=== PATIENT | male | born 1965 ===

== ENCOUNTER 2016-12-08 07:07 | Observation (INO) | payer OTHER ==
[2016-12-08] MEDS ORDERED: Sodium Chloride 0.9% 1,000 ML IV STA (07:31)
--- NOTE | 2016-12-08 07:40 | ED PDOC ---
HPI: General Adult Time Seen by Provider: 12/08/16 07:31 Chief Complaint (Nursing): Abdominal Pain Chief Complaint (Provider): abdominal pain History Per: Patient, Greaser Operator (#[id number] Christiano) History/Exam Limitations: no limitations Additional Complaint(s): 51yo male complaining of right lower quadrant pain since 0. Also reports nausea and vomit but no diarrhea. States he's had similar pain 3 months ago consistent with an appendix problem. States he was admitted at [facility] for 2 days at the time and was told his appendix was swollen. Appendectomy was not completed. Past Medical History Reviewed: Historical Data, Nursing Documentation, Vital Signs Vital Signs: Last Vital Signs Temp 97 F L 12/08/16 07:25 Pulse 87 12/08/16 07:25 Resp 18 12/08/16 07:25 BP 141/76 12/08/16 07:25 Pulse Ox 99 12/08/16 11:00 - Medical History PMH: No Chronic Diseases - Surgical History Surgical History: No Surg Hx - Family History Family History: States: Unknown Family Hx - Home Medications Home Medications: Ambulatory Orders Medication Instructions Recorded No Known Home Med 12/08/16 - Allergies Allergies/Adverse Reactions: Allergies Allergy/AdvReac Type Severity Reaction Status Date / Time No Known Allergies Allergy Verified 12/08/16 07:28 Review of Systems ROS Statement: Except As Marked, All Systems Reviewed And Found Negative Constitutional: Negative for: Fever Gastrointestinal: Positive for: Nausea, Vomiting, Abdominal Pain. Negative for : Diarrhea Physical Exam - Reviewed Nursing Documentation Reviewed: Yes Vital Signs Reviewed: Yes - Physical Exam Appears: Positive for: Well, Non-toxic, No Acute Distress Head Exam: Positive for: ATRAUMATIC, NORMAL INSPECTION, NORMOCEPHALIC Skin: Positive for: Warm, Dry Eye Exam: Positive for: EOMI, PERRL Cardiovascular/Chest: Positive for: Regular Rate, Rhythm Respiratory: Positive for: Normal Breath Sounds. Negative for: Rales, Rhonchi, Wheezing Gastrointestinal/Abdominal: Positive for: Soft, Tenderness (right lower quadrant ). Negative for: Guarding, Rebound Extremity: Positive for: Normal ROM Neurologic/Psych: Positive for: Alert, Oriented - Laboratory Results Result Diagrams: 12/08/16 07:30 12/08/16 07:30 - ECG O2 Sat by Pulse Oximetry: 99 (RA) Pulse Ox Interpretation: Normal Medical Decision Making Medical Decision Makin: Will rule out appendicitis. CT abd/pel w/, Labs, IV fluids, Toradol ordered. Labs reviewed, mild leukocytosis Ct abd pelv d/w Dr heredia radiologist, likely acute appendicitis with dilated appendix 1.1cm Discussed results w patient, admit for surgery eval. Dr Wilkins surgery local telephone operator paged to inform. Zosyn initiated. Pt does not meet SIRS criteria. D/w surgery resident 11am D/w Dr Almendarez hospitalist 1110am. Care transferred. Disposition - Clinical Impression Clinical Impression: Appendicitis - Patient ED Disposition Is Patient to be Admitted: Yes Counseled Patient/Family Regarding: Studies Performed, Diagnosis - Disposition Disposition Time: 10:30 Condition: STABLE - Pt Status Changed To: Hospital Disposition Of: Observation - POA Present On Arrival: None Additional Comments - Additional Comments Additional Comments: Scribe Attestation Documented by Ron Campbell acting as a scribe for Ya Banuelos DO. Provider Attestation: All medical record entries made by the Scribe were at my direction and personally dictated by me. I have reviewed the chart and agree that the record accurately reflects my personal performance of the history, physical exam, medical decision making, and the department course for this patient. I have also personally directed, reviewed, and agree with the discharge instructions and disposition.
[2016-12-08 08:06] LABS: BASO % 0.4 % (0.0-2.0); EOS # 0.1 K/uL (0.0-0.7); HEMATOCRIT 46.6 % (35.0-51.0); LYMPH # 1.2 K/uL (1.0-4.3); LYMPH % 9.4 % (20.0-40.0); MEAN CELL VOLUME 91.9 fl (80.0-94.0); MEAN CORPUSCULAR HGB CONC 32.6 g/dL (33.0-37.0); MEAN PLATELET VOLUME 8.2 fl (7.2-11.7); MONO # 0.8 K/uL (0.0-0.8); NEUT # 10.4 K/uL (1.8-7.0); NEUT % 83.2 % (50.0-75.0); PLATELET COUNT 199 K/uL (130-400); RED CELL DISTRIBUTION WIDTH 14.4 % (11.5-14.5); WHITE BLOOD COUNT 12.5 K/uL (4.8-10.8)
[2016-12-08 08:23] LABS: ALB/GLOB RATIO 1.2 (1.0-2.1); ALKALINE PHOSPHATASE 67 U/L (38-126); ALT/SGPT 44 U/L (21-72); AST/SGOT 29 U/L (17-59); BILIRUBIN,TOTAL 0.8 mg/dl (0.2-1.3); BLOOD UREA NITROGEN 12 mg/dl (9-20); CALCIUM 8.9 mg/dL (8.4-10.2); CARBON DIOXIDE 25 mmol/L (22-30); CHLORIDE 104 mmol/L (98-107); GFR AFRICAN-AMERICAN > 60; GLUCOSE,RANDOM 115 mg/dL (75-110); LIPASE 38 U/L (23-300); POTASSIUM 4.1 MMOL/L (3.6-5.0); SODIUM 141 mmol/l (132-148); TOTAL PROTEIN 8.3 G/DL (6.3-8.2)
[2016-12-08 09:05] LABS: RBC URINE 3 /hpf (0-3); URINE BILIRUBIN NEGATIVE (NEGATIVE); URINE BLOOD NEGATIVE (NEGATIVE); URINE COLOR YELLOW (YELLOW); URINE GLUCOSE (UA) NEG (Normal); URINE KETONE NEGATIVE (NEGATIVE); URINE LEUKOCYTE ESTERASE NEG Leu/uL (Negative); URINE PROTEIN NEGATIVE (NEGATIVE); URINE UROBILINOGEN 0.2-1.0 mg/dL (0.2-1.0); WBC URINE 1 /hpf (0-5)
[2016-12-08] MEDS ORDERED: Sodium Chloride 0.9% 50 ML IV ONE (09:30)
[2016-12-08] MEDS ORDERED: Iohexol 300 100 ML IJ ONE (09:30)
[2016-12-08 10:33] LABS: EOSINOPHIL 1 % (0-7); NEUTROPHIL 87 % (42-75); TOTAL CELLS COUNTED 100
--- NOTE | 2016-12-08 10:57 | CT ---
PROCEDURE: CT Abdomen and Pelvis with contrast HISTORY: RLQ pain/vomiting COMPARISON: None available. TECHNIQUE: Contrast dose: 95 mL Omnipaque 300 Radiation dose: Total exam DLP = 1168.33 mGy-cm. This CT exam was performed using one or more of the following dose reduction techniques: Automated exposure control, adjustment of the mA and/or kV according to patient size, and/or use of iterative reconstruction technique. FINDINGS: LOWER THORAX: Mild bibasilar atelectasis. No visible pleural effusion or pneumothorax. LIVER: Hypoattenuation of the liver compatible with hepatic steatosis. Too small to characterize 9 mm right hepatic lobe hypodensity; statistically likely cyst or hemangioma. GALLBLADDER AND BILE DUCTS: Cholelithiasis. PANCREAS: Unremarkable. SPLEEN: Unremarkable. ADRENALS: Unremarkable. KIDNEYS AND URETERS: Too small to characterize 7 mm left renal hypodensity ; statistically likely cyst. The kidneys enhance symmetrically. No evidence of hydronephrosis or obstructing calculus. VASCULATURE: No aortic aneurysm. BOWEL: Stomach is nondistended. Lack of oral contrast limits evaluation for bowel pathology. Bowel loops appear within normal limits of caliber without evidence of obstruction. APPENDIX: Dilated blind-ending tubular structure in the right lower quadrant compatible with the appendix measures approximately 11 mm in caliber ; correlate clinically for acute appendicitis. Periappendiceal inflammatory changes are not evident. PERITONEUM: No significant free fluid. No definite free air. LYMPH NODES: No bulky adenopathy evident. BLADDER: Unremarkable. REPRODUCTIVE: Prostate gland measures approximately 3.7 x 4.3 cm. BONES: No acute osseous abnormality is detected. OTHER FINDINGS: None. IMPRESSION: Dilated blind-ending tubular structure in the right lower quadrant compatible with the appendix measures approximately 11 mm in caliber ; correlate clinically for acute appendicitis. Periappendiceal inflammatory changes are not evident. Cholelithiasis. Additional incidental findings as above. Findings discussed with Dr. Banuelos on 12/08/16 at 10:52 a.m..
[2016-12-08] MEDS ORDERED: Piperacillin/Tazobact 4.5 GM in Sodium Chloride 0.9% 100 ML IVPB STA (11:03)
--- NOTE | 2016-12-08 11:23 | CP.PCM.CON ---
<Adrian Jacobs - Last Filed: 12/08/16 11:30> History of Present Illness - History of Present Illness History of Present Illness: Gen Surg Consult: Dr Berry CC: RLQ pain Pt is a 51M with no significant PMH who presents with RLQ pain. Pt was seen at [facility] 3 months ago and diagnosed with acute appendicitis. He was treated conservatively with abx and bowel rest and then discharged. He returns today with similar symptoms that started around 4AM. Pt states pain initially started in the epigastrium/supra-umbilical, but then over time migrated down to RLQ. He has had associated nausea but no emesis. Denies diarrhea or constipation, dysuria, sob, chest pain. Last BM was this morning. PMH: appendicitis (non-op mgmt) PSH: knee arthroplasty NKDA Review of Systems - Review of Systems All systems: reviewed and no additional remarkable complaints except (as per hpi ) Past Patient History - Past Social History Smoking Status: Never Smoked - PSYCHIATRIC Hx Substance Use: No - SURGICAL HISTORY Hx Surgeries: No - ANESTHESIA Hx Anesthesia: No Meds Allergies/Adverse Reactions: Allergies Allergy/AdvReac Type Severity Reaction Status Date / Time No Known Allergies Allergy Verified 12/08/16 07:28 - Medications Medications: Current Medications Piperacillin Sod/Tazobactam (Sod 4.5 gm/ Sodium Chloride) 100 mls @ 100 mls/hr IVPB STAT STA Stop: 12/08/16 12:02 Physical Exam - Constitutional Appears: Non-toxic, No Acute Distress - Head Exam Head Exam: NORMAL INSPECTION - Eye Exam Eye Exam: absent: Scleral icterus - ENT Exam ENT Exam: Mucous Membranes Moist - Respiratory Exam Respiratory Exam: absent: Accessory Muscle Use, Respiratory Distress - Cardiovascular Exam Cardiovascular Exam: REGULAR RHYTHM. absent: Tachycardia - GI/Abdominal Exam GI & Abdominal Exam: Normal Bowel Sounds, Soft, Tenderness (RLQ pain). absent: Distended, Firm, Guarding, Hernia - Rectal Exam Rectal Exam: Deferred - Extremities Exam Extremities exam: Positive for: pedal pulses present. Negative for: calf tenderness - Neurological Exam Neurological exam: Alert, Oriented x3 - Psychiatric Exam Psychiatric exam: Normal Affect, Normal Mood - Skin Skin Exam: Normal Color, Warm Results - Vital Signs Recent Vital Signs: Last Vital Signs Temp 97 F L 12/08/16 07:25 Pulse 87 12/08/16 07:25 Resp 18 12/08/16 07:25 BP 141/76 12/08/16 07:25 Pulse Ox 99 12/08/16 11:11 - Labs Result Diagrams: 12/08/16 07:30 12/08/16 07:30 Labs: Laboratory Results - last 24 hr 12/08/16 12/08/16 12/08/16 07:30 07:30 08:50 WBC 12.5 H RBC 5.07 Hgb 15.2 Hct 46.6 MCV 91.9 MCH 30.0 MCHC 32.6 L RDW 14.4 Plt Count 199 MPV 8.2 Neut % (Auto) 83.2 H Lymph % (Auto) 9.4 L [place] % (Auto) 6.0 Eos % (Auto) 1.0 Baso % (Auto) 0.4 Neut # 10.4 H Lymph # 1.2 [place] # 0.8 Eos # 0.1 Baso # 0.0 Neutrophils % (Manual) 87 H Band Neutrophils % 1 Lymphocytes % (Manual) 7 L Monocytes % (Manual) 4 Eosinophils % (Manual) 1 Platelet Estimate Normal RBC Morphology Normal Sodium 141 Potassium 4.1 Chloride 104 Carbon Dioxide 25 Anion Gap 15 BUN 12 Creatinine 0.7 L Est GFR ( Amer) > 60 Est GFR (Non-Af Amer) > 60 Random Glucose 115 H Calcium 8.9 Total Bilirubin 0.8 AST 29 ALT 44 Alkaline Phosphatase 67 Total Protein 8.3 H Albumin 4.6 Globulin 3.7 Albumin/Globulin Ratio 1.2 Lipase 38 Urine Color Yellow Urine Clarity Clear Urine pH 5.0 Ur Specific [place] 1.019 Urine Protein Negative Urine Glucose (UA) Neg Urine Ketones Negative Urine Blood Negative Urine Nitrate Negative Urine Bilirubin Negative Urine Urobilinogen 0.2-1.0 Ur Leukocyte Esterase Neg Urine RBC (Auto) 3 Urine Microscopic WBC 1 Ur Squamous Epith Cells < 1 Assessment & Plan - Assessment and Plan (Free Text) Assessment: 51M with acute appendicitis Plan: cont abx NPO IV fluids to OR today for lap appy d/w Dr Kristi Jacobs, DO, PGY2 - Date & Time Date: 12/08/16 Time: 11:37 <Audi Berry - Last Filed: 12/14/16 22:19> Results - Vital Signs Recent Vital Signs: Last Vital Signs Temp 98.5 F 12/09/16 08:00 Pulse 86 12/09/16 08:00 Resp 18 12/09/16 08:00 BP 126/68 12/09/16 08:00 Pulse Ox 96 12/09/16 08:00 - Labs Result Diagrams: 12/09/16 06:28 12/09/16 06:28 Attending/Attestation - Attestation I have personally seen and examined this patient.: Yes I have fully participated in the care of the patient.: Yes I have reviewed all pertinent clinical information: Yes Notes (Text): 12/14/16 22:17 Pt was seen and examined at bedside on 12/08/16 Agree with above note and assessment Pt with Acute Appendicitis OR for Lap Appendectomy Consent Plan d.w pt in detail Risk and benefit explained in detail.
--- NOTE | 2016-12-08 11:45 | CP.PCM.HP ---
History of Present Illness - History of Present Illness History of Present Illness: Hospitalist H&P (Patient was seen and examined at 11:15 AM 12/08/16 ER Bed #13) PMD: NONE. Uninsured CODE STATUS: FULL CODE. NO Living Will/Advance Directive. Designates his Kiesha [phone] as his Health Care Proxy CHIEF COMPLAINT: Abdominal Pain 51 year old male who had his son drive him here to the ER with a chief complaint of abodminal pain. This pain which is described as sharp awoke him from sleep around 3 AM today and orginally was in the epigastric area but then localized to the RLQ. It was NOT associated with any N/V. Patient states that he had similar pain roughly 3 months ago when he presented to [facility] , was given unspecified antibiotic and then discharged to home. His last meal was at 7 PM 12/07/16 and then had some water/tea at 9 PM 12/07/16. 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, NO alcohol, NO illicit drugs, NO tobacco Family Hx: Mom (Healthy), Dad (unknown), Son (Healthy) Present on Admission - Present on Admission Any Indicators Present on Admission: Yes History of DVT/PE: No History of Uncontrolled Diabetes: No Urinary Catheter: No Decubitus Ulcer Present: No Review of Systems - Review of Systems Review of Systems: See above Past Patient History - Past Medical History & Family History Pertinent Family History: See above - Past Social History Smoking Status: Never Smoked - PSYCHIATRIC Hx Substance Use: No - SURGICAL HISTORY Hx Surgeries: No - ANESTHESIA Hx Anesthesia: No Meds Allergies/Adverse Reactions: Allergies Allergy/AdvReac Type Severity Reaction Status Date / Time No Known Allergies Allergy Verified 12/08/16 07:28 Physical Exam - Constitutional Appears: Non-toxic, No Acute Distress - Head Exam Head Exam: ATRAUMATIC, NORMAL INSPECTION, NORMOCEPHALIC - Eye Exam Eye Exam: EOMI, Normal appearance, PERRL Pupil Exam: NORMAL ACCOMODATION, PERRL - ENT Exam ENT Exam: Mucous Membranes Moist, Normal Exam, Normal External Ear Exam, Normal Oropharynx - Neck Exam Neck exam: Positive for: Normal Inspection Additional comments: NO cervical/supraclavicular/submandibular lymphadenopathy - Respiratory Exam Respiratory Exam: Clear to Auscultation Bilateral, NORMAL BREATHING PATTERN Additional comments: CTA B/L, NO R/R/W - Cardiovascular Exam Cardiovascular Exam: REGULAR RHYTHM, +S1, +S2 Additional comments: NO M/R/G NS1 and NS2 - GI/Abdominal Exam Additional comments: BSx4, Soft, NO HSM, (+) Tenderness to deep palpation RLW but NO guarding/ rebound tenderness NO PSOAS Sign - Extremities Exam Extremities exam: Positive for: normal capillary refill, normal inspection Additional comments: NO edema Pulses are strong and equal Capillary Refill is 2 seconds - Neurological Exam Neurological exam: Alert, CN II-XII Intact, Oriented x3 Results - Vital Signs Recent Vital Signs: Last Vital Signs Temp 97 F L 12/08/16 07:25 Pulse 87 12/08/16 07:25 Resp 18 12/08/16 07:25 BP 141/76 12/08/16 07:25 Pulse Ox 99 12/08/16 11:11 - Labs Result Diagrams: 12/08/16 07:30 12/08/16 07:30 Assessment & Plan (1) Appendicitis Assessment and Plan: NPO for now STAT CXR STAT EKG STAT PT/PTT/INR LR at 100 mL per hour Zosyn 4.5 gm IV Q6H Toradol 15 mg IV Q6H PRN Moderate Pain Toradol 30 mg IV Q6H PRN Severe Pain For Lap Appy with Dr. Berry Status: Acute (2) Prophylactic measure Assessment and Plan: Protonix 40 mg IV 1x/day Bilateral SCDs Disposition: Discharge in AM 12/09/16 if there are no issues after Lap Appy Status: Acute
[2016-12-08] MEDS: Lactated Ringer's 1,000 ML IV SCH ×2 (12:03→18:55)
[2016-12-08 12:31] LABS: PARTIAL THROMBOPLASTIN TIME 25.4 SECONDS (23.3-32.5)
--- NOTE | 2016-12-08 15:00 | RAD ---
HISTORY: Presurgical Clearance COMPARISON: No prior. FINDINGS: LUNGS: No active pulmonary disease. PLEURA: No significant pleural effusion identified, no pneumothorax apparent. CARDIOVASCULAR: No radiographic findings to suggest acute or significant cardiovascular disease. OSSEOUS STRUCTURES: No significant abnormalities. VISUALIZED UPPER ABDOMEN: Normal. OTHER FINDINGS: None. IMPRESSION: No active disease.
[2016-12-08] MEDS ORDERED: Succinylcholine 200 mg/10 ml Inj IV ONE (15:18)
[2016-12-08] MEDS ORDERED: Propofol 10 mg/ml Inj (20 ML) ONE ×2 (15:18→16:15)
[2016-12-08] MEDS ORDERED: Midazolam 2 MG/2 ML VIAL ONE (15:45)
[2016-12-08] MEDS ORDERED: Lidocaine 4% (Laryng-O-Jet) Kit MM ONE (15:48)
[2016-12-08] MEDS ORDERED: Rocuronium 10 mg/ml (5 ml) ONE (15:56)
[2016-12-08] MEDS ORDERED: Bupivacaine-Epi 0.5%-1:200,000 PF Inj IJ ONE (16:10)
[2016-12-08] MEDS ORDERED: Lidocaine 1% Inj (20ml) IJ ONE (16:10)
[2016-12-08] MEDS ORDERED: Neostigmine Methylsulfate 2 MG/2 ML ML IV ONE (16:18)
[2016-12-08] MEDS ORDERED: Neostigmine Methylsulfate 3mg/3ml Syringe IV ONE (16:18)
[2016-12-08] MEDS ORDERED: HYDROmorphone 0.5 mg/0.5 ml ISec IVP PRN (17:14)
[2016-12-08] MEDS ORDERED: Dexamethasone 4 mg/1 ml IVP PRN (17:14)
[2016-12-08] MEDS ORDERED: Oxycodone/Acetaminophen 5/325 mg Tab PO PRN (17:18)
--- NOTE | 2016-12-08 17:20 | PCM.SURG1 ---
Surgeon's Initial Post Op Note - Surgeon's Notes Surgeon: Dr. Berry Carpet Sewing Machine Operator: Dr. Camarillo PGY2 Type of Anesthesia: General Endo Anesthesia Administered By: Alberto Pre-Operative Diagnosis: Acute Appendicitis Operative Findings: same Post-Operative Diagnosis: same Operation Performed: Laparoscopic Appendectomy Specimen/Specimens Removed: Appendix Estimated Blood Loss: EBL {In ML}: 10 Blood Products Given: N/A Drains Used: No Drains Post-Op Condition: Good Date of Surgery/Procedure: 12/08/16 Time of Surgery/Procedure: 17:20
[2016-12-08] MEDS: Piperacillin/Tazobact 4.5 GM in Sodium Chloride 0.9% 100 ML IVPB SCH ×2 (18:00→23:50)
--- NOTE | 2016-12-08 18:19 | OP ---
PROCEDURE DATE: 12/08/2016 PREOPERATIVE DIAGNOSIS: Acute appendicitis. POSTOPERATIVE DIAGNOSIS: Acute appendicitis. PROCEDURE DONE: Laparoscopic appendectomy. SURGEON: Audi Berry M.D. LINE INSTALLER: Nida Jerome , PGY-2 resident. ANESTHESIA: General endotracheal tube anesthesia. ESTIMATED BLOOD LOSS: Around 10 mL. DRAINS: None. PATHOLOGY: Appendix was sent for pathology. COMPLICATIONS: None. INTRAOPERATIVE FINDINGS: The patient had changes of acute appendicitis and thickened, edematous mesoappendix. INTRAOPERATIVE STEPS: This 51-year-old male who was diagnosed with acute appendicitis and patient was consented for laparoscopic appendectomy, possible open, brought to the OR, placed supine on the operating table. After induction of the anesthesia, abdomen was prepped and draped in the usual sterile fashion and supraumbilical transverse 1.5 cm incision was made. After incising skin and subcutaneous tissue, the fascia was incised in the line of incision. Rosi port was placed, pneumo was created. Another 5 mm port was placed in the suprapubic region and the 12 mm port was placed in the left lower quadrant. Grasper and dissector was introduced and the appendix was thickened and edematous. The mesoappendix was resected with Harmonic scalpel. Base of the appendix was resected with a PIETRO and appendix was taken in EndoCatch bag, taken out through the umbilical port site and sent to the table for the pathology. There was a proper hemostasis in each and every part of the procedure. There was no pelvic, periappendicular or perihepatic collection. After proper hemostasis, all the ports were taken out under vision. Pneumo was deflated. The umbilical port sites was closed in 2 layers, the fascia with 0 Vicryl interrupted sutures, the skin with a 4-0 Monocryl. Dry sterile dressing was applied. The patient tolerated the procedure well. Count of instruments and gauze was correct. Audi Berry MD cc: [id number] TT: 12/08/2016 18:18:38 jn MTDD
--- NOTE | 2016-12-09 02:09 | CARD ---
APPROVED REPORT EKG Measurement Heart [id number] <Conclusion> Normal sinus rhythm Nonspecific T wave abnormality Abnormal ECG
[2016-12-09 05:14] VITALS: O2SAT 96
[2016-12-09] MEDS: Piperacillin/Tazobact 4.5 GM in Sodium Chloride 0.9% 100 ML IVPB SCH (05:22)
[2016-12-09] MEDS: Lactated Ringer's 1,000 ML IV SCH (05:24)
[2016-12-09 06:47] LABS: BASO % 0.2 % (0.0-2.0); EOS # 0.2 K/uL (0.0-0.7); EOS % 1.8 % (0.0-4.0); HEMATOCRIT 40.2 % (35.0-51.0); LYMPH # 1.1 K/uL (1.0-4.3); LYMPH % 10.7 % (20.0-40.0); MEAN CORPUSCULAR HEMOGLOBIN 30.3 pg (27.0-31.0); MEAN CORPUSCULAR HGB CONC 33.3 g/dL (33.0-37.0); MEAN PLATELET VOLUME 8.3 fl (7.2-11.7); MONO # 0.8 K/uL (0.0-0.8); MONO % 8.2 % (0.0-10.0); NEUT # 7.8 K/uL (1.8-7.0); NEUT % 79.1 % (50.0-75.0); NRBC % 0.1 % (0.0-0.0); RED CELL DISTRIBUTION WIDTH 14.4 % (11.5-14.5); WHITE BLOOD COUNT 9.9 K/uL (4.8-10.8)
[2016-12-09 07:03] LABS: ALB/GLOB RATIO 1.2 (1.0-2.1); ALKALINE PHOSPHATASE 46 U/L (38-126); ALT/SGPT 38 U/L (21-72); AST/SGOT 27 U/L (17-59); BILIRUBIN,TOTAL 2.3 mg/dl (0.2-1.3); BLOOD UREA NITROGEN 12 mg/dl (9-20); CALCIUM 8.2 mg/dL (8.4-10.2); CARBON DIOXIDE 29 mmol/L (22-30); CHLORIDE 103 mmol/L (98-107); GFR AFRICAN-AMERICAN > 60; GLUCOSE,RANDOM 108 mg/dL (75-110); POTASSIUM 3.9 MMOL/L (3.6-5.0); SODIUM 142 mmol/l (132-148); TOTAL PROTEIN 6.7 G/DL (6.3-8.2)
--- NOTE | 2016-12-09 07:29 | CP.PCM.PN ---
<MarquiseNeena - Last Filed: 12/09/16 07:26> Subjective - Date & Time of Evaluation Date of Evaluation: 12/09/16 Time of Evaluation: 07:26 - Subjective Subjective: General Surgery - Dr. Berry Pt S&E. Fever overnight immediately post op of 101.4, Afebrile since then. He states his pain is better. He has been OOB to the bathroom. Tolerated small amount of solid food last night. No N/V, SOB/CP. Objective - Vital Signs/Intake and Output Vital Signs (last 24 hours): Temp Pulse Resp BP Pulse Ox 98.7 F 84 20 112/68 96 12/09/16 05:13 12/09/16 05:13 12/09/16 05:13 12/09/16 05:13 12/09/16 05:13 Intake and Output: 12/09/16 12/09/16 06:59 18:59 Intake Total 640 Balance 640 - Medications Medications: Current Medications Acetaminophen (Tylenol 325mg Tab) 650 mg PO Q6 PRN PRN Reason: Fever >100.4 F Last Admin: 12/08/16 20:28 Dose: 650 mg Piperacillin Sod/Tazobactam (Sod 4.5 gm/ Sodium Chloride) 100 mls @ 100 mls/hr IVPB Q6H [facility] Last Admin: 12/09/16 05:22 Dose: 100 mls/hr Lactated Ringer's (Lactated Ringer's) 1,000 mls @ 100 mls/hr IV .Q10H [facility] Last Admin: 12/09/16 05:24 Dose: 100 mls/hr Ketorolac Tromethamine (Toradol) 15 mg IVP Q6 PRN PRN Reason: Pain, moderate (4-7) Ketorolac Tromethamine (Toradol) 30 mg IVP Q6 PRN PRN Reason: Pain, severe (8-10) Last Admin: 12/08/16 12:12 Dose: 30 mg Oxycodone/Acetaminophen (Percocet 5/325 Mg Tab) 1 tab PO Q4 PRN PRN Reason: Pain, moderate (4-7) Stop: 12/11/16 17:19 Pantoprazole Sodium (Protonix Inj) 40 mg IVP DAILY [facility] Last Admin: 12/08/16 12:12 Dose: 40 mg - Labs Labs: 12/09/16 06:28 12/09/16 06:28 PT 10.7 SECONDS (9.6-11.2) 12/08/16 11:41 INR 1.03 (0.92-1.08) 12/08/16 11:41 APTT 25.4 SECONDS (23.3-32.5) 12/08/16 11:41 - Constitutional Appears: No Acute Distress - Head Exam Head Exam: ATRAUMATIC, NORMAL INSPECTION, NORMOCEPHALIC - Respiratory Exam Respiratory Exam: NORMAL BREATHING PATTERN. absent: Respiratory Distress - Cardiovascular Exam Cardiovascular Exam: REGULAR RHYTHM - GI/Abdominal Exam GI & Abdominal Exam: Soft. absent: Guarding, Rigid, Tenderness, Rebound Additional comments: dressings C/D/I - Neurological Exam Neurological Exam: Alert, Oriented x3 - Psychiatric Exam Psychiatric exam: Normal Affect, Normal Mood - Skin Skin Exam: Dry, Intact Assessment and Plan - Assessment and Plan (Free Text) Assessment: 51 yo M s/p Laparoscopic Appendectomy, POD #1 -Doing well post-operatively -Regular diet -OOB/Ambulation -Clear for D/C from surgical standpoint -Pt to f/u with Dr. Berry in office in 1 week -May remove dressings tomorrow and may shower, no heavy lifting >10lbs for [address] Kristi Camarillo PGY2 <Audi Berry - Last Filed: 12/14/16 22:23> Objective - Vital Signs/Intake and Output Vital Signs (last 24 hours): Temp Pulse Resp BP Pulse Ox 98.5 F 86 18 126/68 96 12/09/16 08:00 12/09/16 08:00 12/09/16 08:00 12/09/16 08:00 12/09/16 08:00 - Labs Labs: 12/09/16 06:28 12/09/16 06:28 PT 10.7 SECONDS (9.6-11.2) 12/08/16 11:41 INR 1.03 (0.92-1.08) 12/08/16 11:41 APTT 25.4 SECONDS (23.3-32.5) 12/08/16 11:41 Attending/Attestation - Attestation I have personally seen and examined this patient.: Yes I have fully participated in the care of the patient.: Yes I have reviewed all pertinent clinical information, including history, physical exam and plan: Yes Notes (Text): 12/14/16 22:22 Pt was seen and examined at bedside on 12/09/16 Agree with above note and assessment
[2016-12-09 08:41] VITALS: BP 126/68; PULSE 86; RESP 18; TEMP 98.5
--- NOTE | 2016-12-09 11:13 | CP.PCM.DIS ---
Provider - Provider Date of Admission: 12/08/16 11:08 Attending physician: Ari Almendarez MD Consults: Dr Berry Time Spent in preparation of Discharge (in minutes): 30 Diagnosis - Discharge Diagnosis (1) Appendicitis Status: Acute Comment: doing well after appendectomy yesterday. Hospital Course - Lab Results Lab Results: Most Recent Lab Values WBC 9.9 K/uL (4.8-10.8) 12/09/16 06:28 RBC 4.41 Mil/uL (4.40-5.90) 12/09/16 06:28 Hgb 13.4 g/dL (12.0-18.0) 12/09/16 06:28 Hct 40.2 % (35.0-51.0) 12/09/16 06:28 MCV 91.0 fl (80.0-94.0) 12/09/16 06:28 MCH 30.3 pg (27.0-31.0) 12/09/16 06:28 MCHC 33.3 g/dL (33.0-37.0) 12/09/16 06:28 RDW 14.4 % (11.5-14.5) 12/09/16 06:28 Plt Count 165 K/uL (130-400) 12/09/16 06:28 MPV 8.3 fl (7.2-11.7) 12/09/16 06:28 Neut % (Auto) 79.1 % (50.0-75.0) H 12/09/16 06:28 Lymph % (Auto) 10.7 % (20.0-40.0) L 12/09/16 06:28 [place] % (Auto) 8.2 % (0.0-10.0) 12/09/16 06:28 Eos % (Auto) 1.8 % (0.0-4.0) 12/09/16 06:28 Baso % (Auto) 0.2 % (0.0-2.0) 12/09/16 06:28 Neut # 7.8 K/uL (1.8-7.0) H 12/09/16 06:28 Lymph # 1.1 K/uL (1.0-4.3) 12/09/16 06:28 [place] # 0.8 K/uL (0.0-0.8) 12/09/16 06:28 Eos # 0.2 K/uL (0.0-0.7) 12/09/16 06:28 Baso # 0.0 K/uL (0.0-0.2) 12/09/16 06:28 Neutrophils % (Manual) 87 % (42-75) H 12/08/16 07:30 Band Neutrophils % 1 % (0-2) 12/08/16 07:30 Lymphocytes % (Manual) 7 % (20-50) L 12/08/16 07:30 Monocytes % (Manual) 4 % (0-10) 12/08/16 07:30 Eosinophils % (Manual) 1 % (0-7) 12/08/16 07:30 Platelet Estimate Normal (NORMAL) 12/08/16 07:30 RBC Morphology Normal (NORMAL) 12/08/16 07:30 PT 10.7 SECONDS (9.6-11.2) 12/08/16 11:41 INR 1.03 (0.92-1.08) 12/08/16 11:41 APTT 25.4 SECONDS (23.3-32.5) 12/08/16 11:41 Sodium 142 mmol/l (132-148) 12/09/16 06:28 Potassium 3.9 MMOL/L (3.6-5.0) 12/09/16 06:28 Chloride 103 mmol/L (98-107) 12/09/16 06:28 Carbon Dioxide 29 mmol/L (22-30) 12/09/16 06:28 Anion Gap 14 (10-20) 12/09/16 06:28 BUN 12 mg/dl (9-20) 12/09/16 06:28 Creatinine 0.9 mg/dL (0.8-1.5) 12/09/16 06:28 Est GFR ( Amer) > 60 12/09/16 06:28 Est GFR (Non-Af Amer) > 60 12/09/16 06:28 Random Glucose 108 mg/dL (75-110) 12/09/16 06:28 Calcium 8.2 mg/dL (8.4-10.2) L 12/09/16 06:28 Total Bilirubin 2.3 mg/dl (0.2-1.3) H 12/09/16 06:28 AST 27 U/L (17-59) 12/09/16 06:28 ALT 38 U/L (21-72) 12/09/16 06:28 Alkaline Phosphatase 46 U/L (38-126) 12/09/16 06:28 Total Protein 6.7 G/DL (6.3-8.2) 12/09/16 06:28 Albumin 3.6 g/dL (3.5-5.0) 12/09/16 06:28 Globulin 3.1 gm/dL (2.2-3.9) 12/09/16 06:28 Albumin/Globulin Ratio 1.2 (1.0-2.1) 12/09/16 06:28 Lipase 38 U/L (23-300) 12/08/16 07:30 Urine Color Yellow (YELLOW) 12/08/16 08:50 Urine Clarity Clear (Clear) 12/08/16 08:50 Urine pH 5.0 (5.0-8.0) 12/08/16 08:50 Ur Specific [place] 1.019 (1.003-1.030) 12/08/16 08:50 Urine Protein Negative mg/dL (NEGATIVE) 12/08/16 08:50 Urine Glucose (UA) Neg mg/dL (Normal) 12/08/16 08:50 Urine Ketones Negative mg/dL (NEGATIVE) 12/08/16 08:50 Urine Blood Negative (NEGATIVE) 12/08/16 08:50 Urine Nitrate Negative (NEGATIVE) 12/08/16 08:50 Urine Bilirubin Negative (NEGATIVE) 12/08/16 08:50 Urine Urobilinogen 0.2-1.0 mg/dL (0.2-1.0) 12/08/16 08:50 Ur Leukocyte Esterase Neg [place]nn/uL (Negative) 12/08/16 08:50 Urine RBC (Auto) 3 /hpf (0-3) 12/08/16 08:50 Urine Microscopic WBC 1 /hpf (0-5) 12/08/16 08:50 Ur Squamous Epith Cells < 1 /hpf (0-5) 12/08/16 08:50 - Hospital Course Hospital Course: 51 yo male admitted because of abdominal pain localized to the RLQ. Pt was diagnosed with acute appendicitis and had appendectomy. Pt did well and now is ready for discharge. Discharge Exam - Head Exam Head Exam: ATRAUMATIC, NORMAL INSPECTION, NORMOCEPHALIC - Eye Exam Eye Exam: Normal appearance - ENT Exam ENT Exam: Mucous Membranes Moist - Respiratory Exam Respiratory Exam: absent: Rhonchi, Wheezes, Respiratory Distress - Cardiovascular Exam Cardiovascular Exam: REGULAR RHYTHM, +S1, +S2 - GI/Abdominal Exam GI & Abdominal Exam: Soft. absent: Tenderness - Rectal Exam Rectal Exam: Deferred - Neurological Exam Neurological exam: Alert, Oriented x3 - Psychiatric Exam Psychiatric exam: Normal Affect - Skin Skin Exam: Dry, Intact Discharge Plan - Follow Up Plan Condition: STABLE Disposition: HOME/ ROUTINE Instructions: Laparoscopic Appendectomy (DC), Surgical Site Infections (DC), How To Wash Your Hands (DC) Additional Instructions: ptatient to follow up with Dr Berry in office 1 week may remove dressings tomorrow and may shower no heavy lifting > 10 lbs for 4 weeks
== END 2016-12-09 11:34 | disposition home or self-care (01) ==
LOC: H.ER 07:07 → H.ERHOLD 11:08 → H.PEDS 19:07
PROVIDERS: ADMIT Family Medicine; ATTEND Family Medicine
DX: K35.80 Unspecified acute appendicitis (principal)